=== PATIENT | male | born 1955 | race Caucasian/White ===

== ENCOUNTER 2019-12-22 15:50 | Emergency (ER) | payer OTHER ==
[2019-12-22] MEDS: Morphine 2 MG/ML SYRINGE IVPUSH ONE (16:12)
[2019-12-22] MEDS: Nitroglycerin 0.4 MG Tab.SL SL ONE (16:13)
[2019-12-22] MEDS: Clopidogrel 75 MG Tab PO ONE (16:15)
[2019-12-22] MEDS: Ticagrelor 90 MG Tab PO ONE (16:15)
[2019-12-22] MEDS: Ondansetron 4 MG/2 ML SDV IVPUSH ONE (16:18)
[2019-12-22] MEDS: Heparin Sodium 5,000 Units/ML Vial IVPUSH ONE (16:20)
[2019-12-22] MEDS: Heparin Sodium/0.45% NaCl 500 ML IV SCH (16:22)
[2019-12-22 16:23] LABS: CHLORIDE,CL 102 mmol/L (98-107); SODIUM,NA 136 mmol/L (136-145)
[2019-12-22] MEDS: Tenecteplase 50 MG Kit ONE (16:33)
--- NOTE | 2019-12-22 16:37 | EDM.PDOC ---
ED HPI GENERAL MEDICAL PROBLEM - General Chief Complaint: Chest Pain Stated Complaint: L SIDED CHEST PAIN Time Seen by Provider: 12/22/19 15:55 Source of Information: Reports: Patient, EMS - History of Present Illness INITIAL COMMENTS - FREE TEXT/NARRATIVE: Pt had severe 7/10 chest pain starting at 1420 [address] Pulled over and took ASA x 1 Pt stopped in [place] Still having pain Brought to ER via EMS Initial EKG showd STEMI Onset: Today, Sudden Location: Reports: Chest Quality: Reports: Stabbing Severity: Severe Treatments DIRECTOR ENERGY: Reports: Aspirin CHEST Pain Score (Numeric/FACES): 6 - Related Data Allergies Allergy/AdvReac Type Severity Reaction Status Date / Time amoxicillin Allergy Cannot Verified 12/22/19 15:52 Remember ENDOMYCIN Allergy Cannot Uncoded 12/22/19 15:52 Remember Home Meds: Home Meds Pentoxifylline [TRENtal] 400 mg PO TID 12/22/19 [History] Sildenafil [Viagra] 25 mg PO BEDTIME PRN 12/22/19 [History] Tadalafil [Cialis] 5 mg PO BEDTIME 12/22/19 [History] ED ROS GENERAL - Review of Systems Review Of Systems: See Below Constitutional: Reports: No Symptoms HEENT: Reports: No Symptoms Respiratory: Reports: No Symptoms Cardiovascular: Reports: Chest Pain GI/Abdominal: Reports: No Symptoms : Reports: No Symptoms Musculoskeletal: Reports: No Symptoms Neurological: Reports: No Symptoms Psychiatric: Reports: No Symptoms ED EXAM, GENERAL - Physical Exam Exam: See Below Exam Limited By: No Limitations General Appearance: Severe Distress Throat/Mouth: Normal Oropharynx Neck: Supple Respiratory/Chest: Lungs Clear Cardiovascular: Regular Rate, Rhythm GI/Abdominal: Soft, Non-Tender Extremities: No Pedal Edema EKG INTERPRETATION EKG Date: 12/22/19 EKG Interpretation Comments: STEMI Course - Vital Signs Last Recorded V/S: Last Vital Signs Temp 95.4 F L 12/22/19 15:52 Pulse 63 12/22/19 15:52 Resp 20 12/22/19 15:52 BP 121/76 12/22/19 16:13 Pulse Ox 98 12/22/19 15:52 - Orders/Labs/Meds Orders: Active Orders 24 hr Category Date Time Status EKG Documentation Completion [RC] ASDIRECTED Care 09/23/20 16:03 Active Chest 1V Frontal [CR] Stat Exams 12/22/19 16:04 Ordered Heparin Sodium/0.45% NaCl [Heparin 25,000 Units in 1/2 Med 12/22/19 16:15 Active NS 500 ML] 500 ml IV TITRATE EKG 12 Lead [EK] Stat Ther 12/22/19 16:03 Ordered Medication Orders Heparin Sodium/Sodium Chloride (Heparin 25,000 Units In 1/2 Ns 500 Ml) 500 mls @ 23.95 mls/hr IV TITRATE ANTONY; Protocol Last Admin: 12/22/19 16:22 Dose: 12 units/kg/hr, 23.95 mls/hr Documented by: MICA Cosigned by: JOSIE Labs: Laboratory Tests 12/22/19 12/22/19 12/22/19 Range/Units 15:58 15:58 15:58 WBC 9.3 (4.0-10.2) K/uL RBC 4.68 (4.33-5.41) M/uL Hgb 15.8 (13.1-16.8) g/dL Hct 44.2 (39.0-49.0) % MCV 94.4 (84.0-98.0) fL MCH 33.8 H (28.2-33.3) pg MCHC 35.7 (31.7-36.0) g/dL RDW 12.5 (11.2-14.1) % Plt Count 175 (150-350) K/uL Neut % (Auto) 74.6 (45.0-80.0) % Lymph % (Auto) 15.5 (10.0-50.0) % [place] % (Auto) 8.8 (2.0-14.0) % Eos % (Auto) 0.6 (0.0-5.0) % Baso % (Auto) 0.5 (0.0-2.0) % Neut # (Auto) 6.93 (1.40-7.00) K/uL Lymph # (Auto) 1.44 (0.50-3.50) K/uL [place] # (Auto) 0.82 (0.00-1.00) K/uL Eos # (Auto) 0.06 (0.00-0.50) K/uL Baso # (Auto) 0.05 (0.00-0.20) K/uL APTT 22.1 L (24.5-32.8) SEC Sodium 136 (136-145) mmol/L Potassium 3.5 (3.5-5.1) mmol/L Chloride 102 (98-107) mmol/L Carbon Dioxide 21.7 (21.0-32.0) mmol/L BUN 13 (7-18) mg/dL Creatinine 0.94 (0.51-1.17) mg/dL Est Cr Clr Drug Dosing 85.67 mL/min Estimated GFR (MDRD) > 60 mL/min Glucose 241 H (74-106) mg/dL Calcium 9.0 (8.5-10.1) mg/dL Total Bilirubin 0.7 (0.2-1.0) mg/dL AST 28 (15-37) U/L ALT 37 (12-78) U/L Alkaline Phosphatase 72 (46-116) IU/L Troponin I 0.334 H* (0.000-0.056) ng/mL Total Protein 7.6 (6.4-8.2) g/dL Albumin 4.0 (3.4-5.0) g/dL Meds: Medications Generic Name Dose Route Start Last Admin Trade Name Freq PRN Reason Stop Dose Admin Heparin Sodium/Sodium Chloride 500 mls @ 23.95 mls/hr 12/22/19 16:15 12/22/19 16:22 Heparin 25,000 Units In 1/2 Ns 500 Ml IV 12 units/kg/hr TITRATE ANTONY 23.95 mls/hr Administration Protocol 12 UNITS/KG/HR Discontinued Medications Generic Name Dose Route Start Last Admin Trade Name [place] PRN Reason Stop Dose Admin Clopidogrel Bisulfate 600 mg 12/22/19 16:11 12/22/19 16:15 Plavix PO 12/22/19 16:12 600 mg ONETIME ONE Administration Heparin Sodium (Porcine) 4,000 units 12/22/19 16:12 12/22/19 16:20 Heparin Sodium IVPUSH 12/22/19 16:13 4,000 units .BOLUS ONE Administration Morphine Sulfate 2 mg 12/22/19 16:07 12/22/19 16:12 Morphine IVPUSH 12/22/19 16:08 2 mg ONETIME ONE Administration Nitroglycerin 0.4 mg 12/22/19 16:02 12/22/19 16:13 Nitrostat SL 12/22/19 16:03 0.4 mg ONETIME ONE Administration Ondansetron HCl 8 mg 12/22/19 16:14 12/22/19 16:18 Zofran IVPUSH 12/22/19 16:15 8 mg ONETIME ONE Administration Tenecteplase Confirm 12/22/19 16:24 Tnkase Administered 12/22/19 16:25 Dose 50 mg .ROUTE .STK-MED ONE Ticagrelor 180 mg 12/22/19 16:11 12/22/19 16:15 Brilinta PO 12/22/19 16:12 180 mg ONETIME ONE Administration - Re-Assessments/Exams Free Text/Narrative Re-Assessment/Exam: 12/22/19 16:34 Pt with STEMI D/W Dr Rosales On-call cardiology and with On-call travel manager Pt given NTG x 1 SL in ER per protocol Pt given Morphine 2 mg IV Pt also given Plavix 600 mg PO, Brilenta 180 mg PO and Heperain bolus and drip per protocol Pt given TnKase per protocol in ER Transfer via life flight to [facility] Departure - Departure Time of Disposition: 16:40 Disposition: DC/Tfer to Acute Hospital 02 Reason for Transfer *Q: Primary PCI Indicated Clinical Impression: STEMI (ST elevation myocardial infarction) Qualifiers: Involved coronary artery: unspecified coronary artery Qualified Code(s): I21.3 - ST elevation (STEMI) myocardial infarction of unspecified site Referrals: PCP,Not In Area [Primary Care Provider] - Sepsis Event Note (ED) - Evaluation Sepsis Screening Result: No Definite Risk - Focused Exam Vital Signs: Vital Signs Temp Pulse Resp BP BP Pulse Ox 12/22/19 16:13 121/76 12/22/19 15:52 95.4 F L 63 20 126/76 98 - My Orders Last 24 Hours: My Active Orders 12/22/19 16:03 EKG Documentation Completion [RC] ASDIRECTED EKG 12 Lead [EK] Stat 12/22/19 16:04 Chest 1V Frontal [CR] Stat 12/22/19 16:15 Heparin Sodium/0.45% NaCl [Heparin 25,000 Units in 1/2 NS 500 ML] 500 ml IV TITRATE - Assessment/Plan Last 24 Hours: My Active Orders 12/22/19 16:03 EKG Documentation Completion [RC] ASDIRECTED EKG 12 Lead [EK] Stat 12/22/19 16:04 Chest 1V Frontal [CR] Stat 12/22/19 16:15 Heparin Sodium/0.45% NaCl [Heparin 25,000 Units in 1/2 NS 500 ML] 500 ml IV TITRATE
[2019-12-22] MEDS: Sodium Chloride 0.9% 1,000 ML IV ONE (18:08)
== END 2019-12-22 16:55 ==
LOC: LL.ED 15:50
DX: I21.3 ST elevation (STEMI) myocardial infarction of unspecified site (principal); Z88.1 Allergy status to other antibiotic agents; Z79.899 Other long term (current) drug therapy
CPT/HCPCS: 36415; 80053; 84484; 85025; 85730; 93005; 96365; 96375; 99284; 99285-25; A9270-GY; J1644; J2270; J2405; J3101; J7030